=== PATIENT | male | born 1955 | race Caucasian/White ===

== ENCOUNTER 2019-02-15 07:06 | Day surgery (SDC) | payer OTHER ==
[2019-02-10 15:13] VITALS: BMI 32.1
[~2019-02-15 07:06] MED LIST: LACTATED RINGERS 1,000 ML IV SCH; LIDOCAINE 1% 20 ML VIAL (10MG/ML) FOR IV START INTRADERMA PRN
[2019-02-15 07:27] VITALS: TEMP 97.7
[2019-02-15 07:35] LABS: Glucose,Whole Blood 116 mg/dL (75-99)
[2019-02-15] MEDS ORDERED: PROPOFOL 10 MG/ML 20 ML VIAL IV ONE (07:57)
[2019-02-15] MEDS ORDERED: LIDOCAINE 1% INJ 10MG/ML (20 ML MDV) ONE (07:57)
--- NOTE | 2019-02-15 08:04 | P.GSHP ---
History of Present Illness H&P Date: 02/15/19 Chief Complaint: Screening colonoscopy This is a 63-year-old male who presents today for screening colonoscopy. Patient has had issues with hemorrhoids. He complains of anal pain and burning. Past Medical History Past Medical History: Diabetes Mellitus, Hyperlipidemia, Rheumatoid Arthritis (RA) Additional Past Medical History / Comment(s): hemorrhoids,change in bowel habits History of Any Multi-Drug Resistant Organisms: None Reported Past Surgical History: Hernia Repair, Tonsillectomy Additional Past Surgical History / Comment(s): colonoscopy Past Anesthesia/Blood Transfusion Reactions: No Reported Reaction Smoking Status: Former smoker - Past Family History Father Family Medical History: Myocardial Infarction ([place]) Medications and Allergies Home Medications Medication Instructions Recorded Confirmed Type Ibuprofen [Motrin] 200 mg PO DAILY PRN 02/10/19 02/10/19 History Lexapro (Unk.Dose) 1 tab PO DAILY 02/10/19 02/15/19 History Metformin (Unkn.Dose) 1 tab PO HS 02/10/19 02/15/19 History Simvastatin (Unkn Dose) 1 tab PO HS 02/10/19 02/15/19 History Allergies Allergy/AdvReac Type Severity Reaction Status Date / Time No Known Allergies Allergy Verified 02/10/19 15:05 Surgical - Exam Vital Signs Pulse Resp BP Pulse Ox 69 17 165/77 96 02/15/19 07:18 02/15/19 07:18 02/15/19 07:18 02/15/19 07:18 - General well developed, well nourished, no distress - Eyes PERRL - ENT normal pinna - Neck no masses - Respiratory normal expansion - Cardiovascular Rhythm: regular - Abdomen Abdomen: soft, non tender Results - Labs Abnormal Lab Results - Last 24 Hours (Table) 02/15/19 Range/Units 07:22 POC Glucose (mg/dL) 116 H (75-99) mg/dL Assessment and Plan Assessment: History of hemorrhoids We'll perform screening colonoscopy
--- NOTE | 2019-02-15 08:21 | P.OP ---
Date of Procedure: 02/15/19 Preoperative Diagnosis: Screening colonoscopy Postoperative Diagnosis: Right colon polyp Diverticulosis Rectal polyp Internal hemorrhoids Procedure(s) Performed: Colonoscopy Anesthesia: MAC Surgeon: Johnny Lyons Pathology: other (Rectal polyp, right colon polyp) Condition: stable Disposition: PACU Description of Procedure: The patient's placed on the endoscopy table in the lateral position. He received IV sedation. Digital rectal exam was performed which revealed internal hemorrhoids. Flexible colonoscope was then placed patient anus passed throughout the entire colon. The ileocecal valve was visualized. Cecum appeared normal. In the right colon was a small sessile polyp. This removed the cold forcep. Scope was withdrawn. The remainder of the transverse colon appeared normal. In the descending; there is extensive diverticular changes. Scope was then brought back the rectum and another polyp was seen. This was removed with the cold forcep. Scope was then withdrawn and internal hemorrhoids were seen. The scope was withdrawn for patient.
[2019-02-15 08:24] VITALS: RESP 16
[2019-02-15 08:28] LABS: Glucose,Whole Blood 113 mg/dL (75-99)
[2019-02-15 08:37] VITALS: BP 109/73; PULSE 62
== END 2019-02-15 09:02 | disposition home or self-care (01) ==
LOC: ORWHC2ENDO 07:06
PROVIDERS: ATTEND Surgery
DX: Z12.11 Encounter for screening for malignant neoplasm of colon (principal); D12.8 Benign neoplasm of rectum; K63.5 Polyp of colon; K57.30 Diverticulosis of large intestine without perforation or abscess without bleeding; K64.8 Other hemorrhoids; E11.9 Type 2 diabetes mellitus without complications; E78.5 Hyperlipidemia, unspecified; M06.9 Rheumatoid arthritis, unspecified; Z87.891 Personal history of nicotine dependence; Z82.49 Family history of ischemic heart disease and other diseases of the circulatory system; Z79.84 Long term (current) use of oral hypoglycemic drugs; Z79.899 Other long term (current) drug therapy
CPT/HCPCS: 88305; 45380; J2001; J2704

== ENCOUNTER → 2022-11-24 | Day surgery (SDC) | payer MEDICARE, BC ==
[2022-11-18 17:47] VITALS: BMI 31.6
[~2022-11-24] MED LIST changes: +LIDOCAINE 1% (10MG/ML) FOR IV START INTRADERMA PRN; -LIDOCAINE 1% 20 ML VIAL (10MG/ML) FOR IV START INTRADERMA PRN; +PROPOFOL 10 MG/ML 20 ML VIAL IV ONE
[2022-11-24 08:01] VITALS: TEMP 97.6
[2022-11-24 08:08] LABS: Glucose,Whole Blood 100 mg/dL (70-110)
--- NOTE | 2022-11-24 08:59 | P.PCN ---
Date of Procedure: 11/24/22 Procedure(s) Performed: BRIEF HISTORY: Patient is a 67-year-old pleasant white male scheduled for an elective colonoscopy as a part of evaluation of prior history of colon polyps and strong family history of colon cancer. His maternal grandmother, maternal uncle and nephew of the symptoms family diagnosed with colon cancer in his 60s and 70s respectively. PROCEDURE PERFORMED: Colonoscopy. PREOPERATIVE DIAGNOSIS: History of colon polyps and family history of colon cancer. IV sedation per Anesthesia. PROCEDURE: After informed consent was obtained, the patient, was brought into the endoscopy unit. IV sedation was administered by Anesthesia under continuous monitoring. Digital rectal examination was normal. Initially the Olympus CF-160 flexible video colonoscope was then inserted in the rectum, gradually advanced into the cecum without any difficulty. Careful examination was performed as the scope was gradually being withdrawn. Ileocecal valve and the appendiceal orifice were visualized and appeared normal. Prep was excellent. Mucosa of the cecum, ascending colon, transverse colon, descending colon, sigmoid colon, and rectum appeared normal. Scattered sigmoid diverticulosis. Retroflexion was performed in the rectum and no lesions were seen. The patient tolerated the procedure wel l. IMPRESSION: Normal-appearing colon from rectum to cecum with no evidence of colorectal neoplasia . Scattered left sided diverticulosis. RECOMMENDATIONS: Findings of this examination were discussed with the patient as well as his family. He was advised to have a repeat screening colonoscopy every 5 years because of prior history of colon polyps and strong family history of colon cancer.
[2022-11-24 09:04] VITALS: RESP 16
[2022-11-24 09:17] VITALS: BP 116/71; PULSE 69
== END ==
LOC: ORWHC2ENDO 07:19
PROVIDERS: ATTEND Internal Medicine Gastroenterology
DX: Z12.11 Encounter for screening for malignant neoplasm of colon (principal); K57.30 Diverticulosis of large intestine without perforation or abscess without bleeding; E78.5 Hyperlipidemia, unspecified; E11.9 Type 2 diabetes mellitus without complications; Z86.010 Personal history of colon polyps; Z80.0 Family history of malignant neoplasm of digestive organs; Z79.899 Other long term (current) drug therapy; Z87.891 Personal history of nicotine dependence; Z98.890 Other specified postprocedural states
CPT/HCPCS: G0105; J2704; 45378

== ENCOUNTER → 2023-12-14 | Outpatient (CLI) | payer MEDICARE, BC | END | disposition home or self-care (01) | LOC: LABPRL 11:40 | PROVIDERS: ATTEND Family Medicine | DX: E11.9 Type 2 diabetes mellitus without complications (principal); E78.5 Hyperlipidemia, unspecified | CPT/HCPCS: 80053; 80061; 83036; 84153 ==

== ENCOUNTER → 2024-08-07 | Outpatient (CLI) | payer MEDICARE, BC ==
[2024-08-07 15:11] LABS: African American GFR (CKD) >90 (>60 ml/min/1.73 sqM); Blood Urea Nitrogen 13 mg/dL (9-20); Non-African American GFR(CKD) >90 (>60 ml/min/1.73 sqM)
--- NOTE | 2024-08-07 17:35 | CT ---
EXAMINATION TYPE: CT abdomen pelvis w con DATE OF EXAM: 08/07/2024 5:16 PM COMPARISON: None CLINICAL INDICATION: Male, 68 years old with history of R10.0 ACUTE ABDOMEN; LLQ adbominal pain, occa sional constipation or diarrhea x4 months. TECHNIQUE: Axial CT abdomen pelvis w con;Sagittal and coronal reformats were created on a separate w orkstation. Contrast used:100ml mL of Isovue 300 with IV Contrast, (none if empty) Oral contrast used: with Oral Contrast (none if empty) CT DLP: 1692 mGycm, Automated exposure control for dose reduction was used. FINDINGS: LOWER CHEST: Unremarkable ABDOMEN LIVER: Unremarkable GALLBLADDER AND BILE DUCTS: Unremarkable. PANCREAS: Masslike area in the pancreatic tail extending into the splenic hilum measuring 36 x 41 x 5 0 mm there is some hazy fat stranding around this region. Additional area posterior medially of the p ancreatic tail/body region also present measuring 19 mm. SPLEEN: Unremarkable. ADRENAL GLANDS: Indeterminate left adrenal gland 10 mm nodule-like parenchyma. KIDNEYS AND URETERS: No evidence of hydronephrosis or obstructing renal calculus. Nonobstructing calc ulus measuring up to 14 mm. The ureters are unremarkable. PELVIS BLADDER: No evidence for wall thickening or mass given limitations of exam. Multiple bladder divertic robbi in the posterior right aspect of the large 22 mm stone in one of the diverticula. REPRODUCTIVE: Prostate is enlarged in size measuring 5.5 cm in transverse dimension. ABDOMEN & PELVIS STOMACH AND BOWEL: No evidence of bowel obstruction. Scattered colonic diverticula. PERITONEUM/RETROPERITONEUM: No evidence of pneumoperitoneum or free fluid. VASCULATURE: Mild atherosclerotic calcifications are present throughout the abdominal aorta and its b ranches. No evidence of aortic aneurysm. MUSCULOSKELETAL: No acute osseous abnormalities. Mild disc degeneration changes are present throughou t the thoracolumbar spine. LYMPH NODES: No gross evidence for lymphadenopathy. SOFT TISSUE/ABDOMINAL WALL: Fat-containing umbilical hernia. IMPRESSION: 1. Pancreatic tail masslike area measuring up to 5.0 cm concerning for pancreatic adenocarcinoma unt il proven otherwise. This finding may be invading into the splenic hilum. MRI pancreatic mass protoco l recommended. Alternatively pancreatitis sequela could have this appearance with history of pancreat itis and serum lipase. 2. Nonobstructing left renal calculus. 3. Colonic diverticulosis. 4. Multiple bladder diverticula with largest stone in one of the diverticula. 5. Prostatomegaly, correlate serum PSA. 6. Fat-containing right inguinal hernia. [facility], , 08/07/2024 5:33 PM A Yellow level critical message alert has been initiated for Sid Boo DO via the [employer] Critical Results System on 08/07/2024 5:31 PM. This message alert has been sent to Sid Boo DO via the preferences provided by the clinician for the receipt of Radiology Critical Findings. Message ID [id number].
== END | disposition home or self-care (01) ==
LOC: RADCTMAIN 14:17
PROVIDERS: ATTEND Family Medicine
DX: N20.0 Calculus of kidney (principal); K57.30 Diverticulosis of large intestine without perforation or abscess without bleeding; N32.3 Diverticulum of bladder; K40.90 Unilateral inguinal hernia, without obstruction or gangrene, not specified as recurrent; N40.0 Benign prostatic hyperplasia without lower urinary tract symptoms; K86.89 Other specified diseases of pancreas
CPT/HCPCS: 82565; 84520; 74177; 36415; Q9967